=== PATIENT | female | born 1955 | race Caucasian/White ===

== ENCOUNTER 2024-03-13 06:22 | Observation (INO) ==
--- NOTE | 2024-02-19 11:50 | PAT Medication Instructions ---
Medication Instructions Date of Service February 19, 2024 Home Medications acetaminophen 650 mg tablet,extended release 650 mg PO QAM apixaban 5 mg tablet (Eliquis) 5 mg PO BID calcium carbonate 600 mg-vitamin D3 5 mcg (200 unit) tablet (Calcium 600 + D(3)) 1 tab PO DAILY glipizide 10 mg tablet 10 mg PO QPM levothyroxine 50 mcg capsule 50 mcg PO QAM lisinopril 10 mg tablet 10 mg PO QAM metoprolol succinate 25 mg tablet,extended release 24 hr 12.5 mg PO QPM oxybutynin chloride 10 mg tablet,extended release 24 hr 10 mg PO QAM ASK your prescriber and surgeon apixaban 5 mg tablet (Eliquis) 5 mg PO BID (From anesthesia perspective, Apixaban/Eliquis needs to be stopped 72 hours before surgery. Please check if okay with doctor that prescribes this to you) DO NOT take the morning of surgery calcium carbonate 600 mg-vitamin D3 5 mcg (200 unit) tablet (Calcium 600 + D(3)) 1 tab PO DAILY lisinopril 10 mg tablet 10 mg PO QAM oxybutynin chloride 10 mg tablet,extended release 24 hr 10 mg PO QAM Take morning of surgery With a small sip of water, OTHERWISE NOTHING TO EAT OR DRINK AFTER MIDNIGHT: acetaminophen 650 mg tablet,extended release 650 mg PO QAM levothyroxine 50 mcg capsule 50 mcg PO QAM Take evening before surgery glipizide 10 mg tablet 10 mg PO QPM metoprolol succinate 25 mg tablet,extended release 24 hr 12.5 mg PO QPM Other Notes If you have any questions please call us at [phone] or [phone] or [phone] or [phone]
--- NOTE | 2024-02-22 10:57 | Anesthesiology Consultation ---
Date of Service February 22, 2024 Assessment & Plan (1) Encounter for pre-operative examination: - Check BSG AM DOS - Infectious disease screening: Per assessment on 02/22/24: No known infectious disease contacts or current infectious disease symptoms. No noted recent Covid positive test result. - Outpatient joint assessment: Pt currently scheduled for inpatient pathway. If surgeon requests review for outpatient joint pathway, patient is not recommended candidate for outpatient joint program from anesthesia standpoint. - Apixaban/Eliquis instructions: patient made aware that for neuraxial anesthesia, Apixaban/Eliquis needs to be held 72 hours prior to surgery. Patient voiced understanding/will check if okay with prescriber. - Chlorhexidine allergy: Per patient, hx of rash with long-term exposure/use of chlorhexidine. Did not provide patient with preop chlorhexidine wipes d/t previous reaction. - EP visit (12/18/23): Hx atrial flutter s/p ablation on 06/19/22. 2 episodes of PAF during the ablation requiring cardioversion. No recurrences since previous visit. Continued on same regimen with 6 month f/u recommended. Chart Review Chart Review: Acceptable Risk for Surgery and Patient seen in Pre Admission Testing Teaching & Discussion Pre-Anesthesia Teaching/Discussion Notes: Instructed NPO after midnight before surgery,except medications with 15 cc of water. Medication instructions provided according to the PAT guidelines. History Surgery Operation Date: 03/13/24 08:50 Proposed Procedures p Right Total Knee Arthroplasty - Corky Dexter MD Height/Weight Height: 5 ft 2 in Weight: 118.2 kg Allergies Allergy/AdvReac Type Severity Reaction Status Date / Time chlorhexidine Allergy Unknown Rash-with Verified 02/18/24 12:38 [facility] exposure Penicillins Allergy Unknown Hives Verified 02/18/24 12:26 Medications Home Medications Medication Instructions Recorded Confirmed Last Taken acetaminophen 650 mg 650 mg PO QAM 02/18/24 02/18/24 Unknown tablet,extended release apixaban 5 mg tablet (Eliquis) 5 mg PO BID 02/18/24 02/18/24 Unknown calcium carbonate 600 mg-vitamin 1 tab PO DAILY 02/18/24 02/18/24 Unknown D3 5 mcg (200 unit) tablet (Calcium 600 + D(3)) glipizide 10 mg tablet 10 mg PO QPM 02/18/24 02/18/24 Unknown levothyroxine 50 mcg capsule 50 mcg PO QAM 02/18/24 02/18/24 Unknown lisinopril 10 mg tablet 10 mg PO QAM 02/18/24 02/18/24 Unknown metoprolol succinate 25 mg 12.5 mg PO QPM 02/18/24 02/18/24 Unknown tablet,extended release 24 hr oxybutynin chloride 10 mg 10 mg PO QAM 02/18/24 02/18/24 Unknown tablet,extended release 24 hr Past Medical History Medical History (Updated 02/22/24 @ 12:27 by Francesca Quintero) Bilateral primary osteoarthritis of knee Chronic periodontal disease Dentist monitoring, no recent flares Diabetes NIDDM History of COVID-19 11/2023: symptoms resolved Hx of atrial flutter Reason for Eliquis Follows /[facility] [place] [facility] Hx of hepatitis Age 11 (from [place]) Hx of renal calculi Hypertension Hypothyroidism Morbid obesity PAF (paroxysmal atrial fibrillation) 2 episodes during 06/2022 ablation requiring cardioverion Sleep apnea CPAP (compliant) Uterine cancer 2021- s/p hysterectomy (no chemo or radiation) Exercise / Class Metabolic Activity II 4-5 Yardwork/Stairs/Walk up hill (one FS: No CP, no SOB) Past Family History Family History Other Cancer Diabetes Heart disease Past Surgical History Surgical History History of bunionectomy Right History of foot surgery Right x5 Hx of colonoscopy Hx of cystoscopy Hx of hysterectomy 2021 Hx of lithotripsy Hx of nephrolithotomy with removal of calculi B/L Hx of parathyroidectomy Left - 1.5 removed Hx of prior ablation treatment Past Anesthesia History No Hx of Anesthesia Complications and No Family Hx of Anesthesia Complications History of PONV No Hx of PONV and No Hx of Motion Sickness Social History Smoking Status: Former smoker Do You Dip or Chew Tobacco: No Smoking End Date: Quit 20 years ago Hx Alcohol Use: Yes alcohol intake frequency: holidays/special occasions only Hx Substance Use: No substance use type: does not use Review of Systems Periodontal disease: dentist monitoring, no recent flares; patient states she will make surgeon aware. Patient denies chest pain, shortness of breath, dyspnea on exertion, fever, chills, cough, wheezing, palpitations. Physical Exam Vital Signs BP 120/80 P 62 TEMP 97.5 SP02 98%RA RESP 16 Physical Full cervical extension range of motion. Full TMJ range of motion. TMD > 3.5 finger breaths Mallampati Score 3 Dentition: intact Lungs: clear throughout to auscultation Cardiac: regular rate and rhythm, no murmurs noted Spine: normal Carotid arteries: negative bruit Extremities: no LE edema Thick neck Lab Results Anesthesia Preop Results Results Anesthesia Widget: WBC 6.48 K/ul (4.8-10.8) 02/22/24 Hgb 14.5 g/dl (12.0-16.0) 02/22/24 Hct 42.3 % (37.0-47.0) 02/22/24 Plt 356 K/uL (130-400) 02/22/24 Na 137 mmol/L (136-145) 02/22/24 K 4.7 mmol/L (3.5-5.1) 02/22/24 Cl 104 mmol/L (98-107) 02/22/24 CO2 26 mmol/L (21-32) 02/22/24 BUN 16 mg/dl (6-23) 02/22/24 Creat 0.84 mg/dl (0.6-1.2) 02/22/24 Glucose Level 122 mg/dl (70-99(Fasting)) H 02/22/24 PT 10.4 Seconds (9.0-12.0) 02/22/24 PTT 28 Seconds (21-31) 02/22/24 INR 0.9 (0.9-1.1) 02/22/24 HA1c 6.2 % (4.5-5.6) H 02/22/24 Blood Type A Negative 02/22/24 Antibody Screen NEGATIVE 02/22/24 Testing Electrocardiogram Date: 12/18/23 SB with sinus arrhythmia at 56bpm. "Otherwise normal ECG" Chest X-Ray Date: 02/22/24 FINDINGS: Cardiac silhouette is enlarged. No pneumothorax, pleural effusion or pulmonary edema. Mild linear lingular atelectasis versus scarring. Surgical clips of the left lower neck/upper chest. Bones appear grossly intact. IMPRESSION: No acute process. Echocardiogram Date: 05/04/22 LVEF 65-70%. No LV wall motion abnormalities. Impaired relaxation pattern of LV diastolic filling. Grade I. Borderline ascending aorta. Insufficient TR to assess for RVSP.
[~2024-03-13 06:22] MED LIST: ALLERGY Noted to ORDERED Medication SCH; BUPIVACAINE 0.5 % 5 MG/1 ML PF 10ML VIAL ONE; ROPIVACAINE 0.5% 5 MG/ML 30 ML VIAL ONE; ceFAZolin 3000MG 3,000 MG/72.5 ML BAG IV SCH
--- NOTE | 2024-03-13 06:47 | History & Physical Bridge Note ---
Date of Service March 13, 2024 History & Physical Bridge Note I have examined the patient, reviewed the History & Physical and in the interval since the performance of the History & Physical I have noted the following changes of clinical significance: no changes noted
[2024-03-13] MEDS ORDERED: Nursing to Pharmacy Communication SCH ×2 (07:45)
[2024-03-13] MEDS: Scopolamine 1 MG TDSY TD SCH (07:46)
[2024-03-13] MEDS: CeleBREX 200 MG CAP PO SCH (07:47)
[2024-03-13] MEDS: METOCLOPRAMIDE HCL 10 MG TABLET PO SCH (07:47)
[2024-03-13] MEDS: ACETAMINOPHEN 500 MG TAB PO SCH ×2 (07:47→14:20)
[2024-03-13] MEDS: FAMOTIDINE 20 MG TAB PO SCH (07:47)
[2024-03-13] MEDS: LR 500ML BOLUS, THEN 15ML/HR IV SCH (07:48)
[2024-03-13] MEDS: LR 60ML/HR IV SCH (07:48)
[2024-03-13] MEDS ORDERED: MIDAZOLAM HCL 1 MG/ML 2ML VIAL ONE (07:53)
[2024-03-13] MEDS ORDERED: fentaNYL citrate PF 100 MCG/2 ML VIAL ONE (07:53)
[2024-03-13] MEDS ORDERED: PROPOFOL IV EMULSION 10 MG/ML 100 ML VIAL IV ONE (07:55)
[2024-03-13] MEDS ORDERED: fentaNYL citrate PF 100 MCG/2 ML VIAL IV PRN (07:55)
[2024-03-13] MEDS ORDERED: ATROPINE SULFATE 0.1 MG/ML 10ML SYR IV PRN (07:55)
[2024-03-13] MEDS ORDERED: ONDANSETRON INJ 2 MG/ML 2 ML VIAL IV PRN ×2 (07:55→13:22)
[2024-03-13] MEDS ORDERED: ePHEDrine sulfate 50 MG/ML AMP IV PRN (07:55)
[2024-03-13] MEDS: dexAMETHasone**PF** 10 MG/ML VIAL IV SCH (08:07)
[2024-03-13] MEDS: ceFAZolin 2000MG 2,000 MG/15 ML SYR IV STA (09:13)
[2024-03-13] MEDS: ceFAZolin 2,000 MG/15 ML IV PUSH IV ONE (09:48)
[2024-03-13] MEDS: ORTHO JOINT ANESTHETIC ONE (09:49)
[2024-03-13] MEDS: TRANEXAMIC ACID 1,000 MG **IV Intra-op IV SCH (10:06)
[2024-03-13] MEDS: ROPIV 0.5% 246mg, Ketorolac 30mg, EPINEPHrine 0.5mg in NSS INFIL SCH (10:18)
--- NOTE | 2024-03-13 11:06 | Operative Report ---
PG Post Operative Report Pre & Post Diagnosis Operation Date: 03/13/24 08:50 Pre-Op Diagnosis: Right Knee Degenerative Joint Disease Post-Op Diagnosis: Right Knee Degenerative Joint Disease I identified the patient and participated in the time-out.: Yes Procedure Operation Date: 03/13/24 08:50 Actual Procedures p Right Total Knee Arthroplasty(Right) - Corky Dexter MD Surgeon Corky Dexter MD Road Maker Devon Chaney PA-C Estimated Blood Loss 50 Findings Consistent with Post-Op Diagnosis Operative findings were advanced right knee medial compartment arthritis. She had extensive grade 4 [id number] disease of the medial femoral condyle medial tibial plateau. Slight varus deformity to her knee. Moderate soft tissue envelope. Moderate-sized joint effusion. Specimens Right knee sent for pathology. Anesthesia Type Spinal MAC Complications none Disposition Accompanied Patient To Recovery: No Indications Patient is a 68-year-old female is had a several year history of increasing bilateral knee pain discomfort describes gotten worse over time. She been through extensive conservative treatments became less successful over time. She had pain in both knees. The right knee is bothering more than the left. She elected proceed with a right total knee arthroplasty. Description of Procedure Operative implants consist of: 1 Biomet Vanguard size 65 right posterior stabilized femoral component. 2. Biomet size 63 tibial tray. 3. 10 mm posterior stabilized polyethylene insert. 4. 31 x 8 all poly patella. The patient was taken the op room, identified, placed on the operating table in the supine position. All contact areas were appropriately padded. A spinal anesthetic and abductor canal block had been provided in the holding area by the anesthesia team. A Mcgee catheter was placed in sterile fashion. A right thigh tent was then placed. The right lower extremities then prepped and draped in usual sterile fashion. The right leg was elevated exsanguinated with use of an Esmarch and tourniquet placed at 300 mmHg. An anterior approach to the right knee was then performed through a longitudinal incision centered over the patella. Sharp dissection was carried through subcutaneous tissue down the extensor mechanism. A medial parapatellar arthrotomy incision was made. Some subperiosteal dissection was carried out medially. The fat pad was resected from Neath patella tendon. Lateral patellofemoral ligament was released. The patella subluxated laterally and the knee was flexed. The osteophytes taken off the distal femur. The ACL and PCL were then released from distal femur and the tibia subluxated anteriorly. The external treatment line jig was then placed in the anterior face of the tibia and adjusted 14 mm medially. Proximal tibial cut was made remove about a millimeter or 2 of bone from most deficient aspect the medial tibial plateau. The tibia sized to a size 63. Attention drawn the femur. The distal femur stem with a sharp drill. Intramedullary canal was suction. A right 5 degree valgus cutting guide was placed. The distal femoral cutting block was pinned in place. The distal femoral cut was made take an additional 3 mm of bone off distal femur. The femur was then sized to a size 65. We did downsize this almost an entire size due to the narrow nature of her medial and lateral dimensions of the femur. The AP cutting block was pinned parallel to the epicondylar axis which was 4 degrees. The anterior cut, anterior chamfer, posterior cut, posterior chamfer cuts were made. The box cutting guide was placed in just slight lateral and the box cut was made. The knee was flexed. The remnants of the medial and lateral menisci were excised. The osteophytes taken off the posterior aspect the femur. A trial femoral component was placed. The tibial tray was pinned Melissa external rotation and the drill and stem punch were used to create defect in proximal tibia for the tibial tray. The knee was then trialed and the 10 mm insert fit most appropriately. Attention drawn the patella. The patella was cleaned of all soft tissues. Patella thickness measured 20 mm in thickness was cut down to 12. It was sized to a size 31 patella. The lug holes were drilled for 31 patella. The lateral osteophyte was removed. Patella button was placed. Knee was taken through range of motion patella tracked nicely with no thumbs test. Attention drawn to placing the permanent components. Nupathe all trial components were removed. Bone plug was placed into this femur limit blood loss. A double batch [place] G cement was mixed. A Biomet Vanguard size 65 right posterior stabilized femoral component, size 63 tibial tray, a 10 mm post stabilized polyethylene insert, and a 31 x 8 all poly patella then cemented in place. The knee was brought out into full extension till cement hardened. Final cement check was then performed. The pericapsular tissues were injected with total 100 cc of orthopedic joint mix. Patient did receive 1 g tranexamic acid. The tourniquet was then let down for final tourniquet time 51 minutes. Hemostasis assured use electrocautery. Extensor Metros then closed with combination 1 PDS suture #1 Vicryl suture in a [id number] fashion. Extensor Meclomen checked found to be intact through subcutaneous tissues then closed with 2 Dexon suture in a buried interrupted fashion skin was closed skin niharika. Leg was then cleaned and dried and sterile dressing with Xeroform, 4 fours, sterile cast padding, Escobar bandage were applied. Patient then transferred to the recovery room in stable condition. Patient tolerated procedure well and there were no complications. Devon Chaney, my physician itinerant teacher assistant, was present for the entire procedure. His assistance was essential and required for appropriate patient positioning, prepping and draping, surgical exposure, performing the technical details of the operation, placement the implants, closure of the wound, and placement of the sterile bandage. I attest to the content of the Intraoperative Record and any orders documented therein. Any exceptions are noted below.
--- NOTE | 2024-03-13 12:22 | XRay Report ---
RIGHT KNEE 2 VIEWS History: Right total knee arthroplasty. Degenerative arthritis. Postop. FINDINGS: The patient is status post a right total knee arthroplasty. The hardware is intact. No frac ture or dislocation. Skin niharika are in place. IMPRESSION: Right total knee arthroplasty. No evidence for hardware complication. ACT 112: Negative or not required by law. Electronically signed by: Kemal Workman M.D. 03/13/2024 12:21 PM
[2024-03-13] MEDS ORDERED: NALOXONE HCL 0.4 MG/1 ML VIAL/CARP IV PRN (13:22)
[2024-03-13] MEDS ORDERED: MAGNESIUM HYDROXIDE SUSP 30 ML UDC PO PRN (13:22)
[2024-03-13] MEDS ORDERED: METOCLOPRAMIDE HCL INJ 5 MG/ML 2 ML VIAL IV PRN (13:22)
[2024-03-13] MEDS ORDERED: bisacodyL 10 MG SUPP PR PRN (13:22)
[2024-03-13] MEDS ORDERED: ALUMINUM/MAGNESIUM SUSP 30 ML UDC PO PRN (13:22)
[2024-03-13] MEDS ORDERED: PHARMACY GLYCEMIC MGMT CONSULT PRN (13:22)
--- NOTE | 2024-03-13 14:00 | Anesthesiology Progress Note ---
Date of Service March 13, 2024 Anesthesia Post Procedure Vital Signs Vital Signs: Temp Pulse Pulse Resp BP Pulse Ox O2 Del Method 03/13/24 13:40 97.7 F 78 16 124/54 L 95 Room Air 03/13/24 13:10 97.9 F 88 16 127/68 96 Room Air 03/13/24 12:55 81 15 124/62 93 Room Air 03/13/24 12:40 79 19 114/63 93 Room Air 03/13/24 12:25 81 17 122/65 93 Room Air 03/13/24 12:10 84 18 120/66 94 Room Air 03/13/24 12:00 98.1 F 81 14 123/68 93 Oxymask 03/13/24 11:50 83 13 121/74 94 Oxymask 03/13/24 11:40 91 H 20 118/72 92 Oxymask 03/13/24 11:30 83 15 120/68 95 Oxymask 03/13/24 11:20 84 15 123/67 94 Oxymask 03/13/24 11:10 88 15 115/69 95 Oxymask 03/13/24 11:00 85 15 121/65 92 Room Air 03/13/24 10:53 97.7 F 89 19 115/64 92 Room Air 03/13/24 07:07 97.9 F 71 20 165/87 H 98 Room Air O2 Flow Rate 03/13/24 13:40 03/13/24 13:10 03/13/24 12:55 03/13/24 12:40 03/13/24 12:25 03/13/24 12:10 03/13/24 12:00 2 03/13/24 11:50 2 03/13/24 11:40 2 03/13/24 11:30 2 03/13/24 11:20 4 03/13/24 11:10 4 03/13/24 11:00 03/13/24 10:53 03/13/24 07:07 Pain Intensity Bilateral Knee: Pain Intensity: 2 Transfer of Care Handoff Completed per policy Notes Mental Status: alert / awake / arousable and participated in evaluation Patient Amnestic to Procedure: Yes Nausea / Vomiting: adequately controlled Pain: adequately controlled Airway Patency, RR, SpO2: stable & adequate BP & HR: stable & adequate Hydration State: stable & adequate Neuraxial Anesthesia: was administered and sensory block is resolving Anesthetic Complications: no major complications apparent and Pt Satisfied with anesthetic care
[2024-03-13] MEDS: SODIUM CHLORIDE 0.9% 1,000 ML IV SCH (14:03)
[2024-03-13] MEDS ORDERED: GLUCOSE 10 TAB/TUBE PO PRN (14:15)
[2024-03-13] MEDS ORDERED: DEXTROSE 50% 50 ML SYRINGE IV PRN (14:15)
[2024-03-13] MEDS ORDERED: GLUCOSE 40% GEL 15 GM TUBE PO PRN (14:15)
[2024-03-13] MEDS ORDERED: CARBOHYDRATES FOR HYPOGLYCEMIA PO PRN (14:15)
[2024-03-13] MEDS ORDERED: GLUCAGON FOR INJ 1 MG VIAL IM PRN (14:15)
[2024-03-13] MEDS: KETOROLAC TROMETHAMINE 15 MG/ML VIAL IV SCH (14:20)
[2024-03-13] MEDS: INSULIN ASPART PER UNIT CHARGE SQ ONE (14:20)
[2024-03-13] MEDS: LANTUS PER UNIT CHARGE SC ONE (14:21)
[2024-03-13] MEDS: Scopolamine CHECK PATCH PLACEMENT SCH (15:42)
[2024-03-13] MEDS: oxyCODONE HCL IR 5 MG TAB (IMMEDIATE RELEASE) PO PRN (15:44)
[2024-03-13] MEDS: TRANEXAMIC ACID / 0.7% NACL 1,000 MG/100 ML BAG IV SCH (16:53)
[2024-03-13] MEDS: ASCORBIC ACID 500 MG TAB PO SCH (16:53)
[2024-03-13] MEDS: INSULIN ASPART PER UNIT CHARGE SC SCH (17:44)
[2024-03-13] MEDS: ceFAZolin 2000MG 2,000 MG/15 ML SYR IV SCH (18:45)
[2024-03-13] MEDS: HYDROmorphone INJ 0.5 MG/0.5 ML SYR IV PRN (18:45)
[2024-03-13] MEDS ORDERED: glipiZIDE 5 MG TAB PO SCH (21:00)
[2024-03-13] MEDS: DOCUSATE SODIUM 100 MG CAP PO SCH (21:42)
[2024-03-13] MEDS: SENNA 8.6 MG TAB PO SCH ×2 (21:43)
[2024-03-13] MEDS: METOPROLOL SUCC 25MG EXT REL TAB PO SCH (21:43)
[2024-03-14] MEDS: LEVOTHYROXINE SODIUM 50 MCG TABLET PO SCH (06:00)
[2024-03-14 06:35] LABS: Hematocrit (blood only) 35.3 % (37.0-47.0); Hemoglobin 11.7 g/dl (12.0-16.0); Mean Corpuscular Hemoglobin 30.2 pg (25.0-34.0); Mean Corpuscular Hgb Conc 33.1 g/dL (32.0-36.0); Mean Platelet Volume 9.5 fL (9.4-12.4); Platelet Count 325 K/uL (130-400); RDW Coefficient of Variation 12.9 % (11.5-14.5); RDW Standard Deviation 42.1 fL (36.4-46.3); Red Blood Count 3.88 M/uL (4.20-5.40); White Blood Count 13.55 K/ul (4.8-10.8)
[2024-03-14 07:00] LABS: Calcium 8.8 mg/dl (8.6-10.3); Creatinine Clr Calc Pharmacy 59.5 ml/min; Est GFR (African American) 58.7 ml/min; Est GFR (Non-African American) 50.6 ml/min; Potassium 4.5 mmol/L (3.5-5.1)
[2024-03-14] MEDS: MULTIVITAMIN TAB PO SCH (07:51)
[2024-03-14] MEDS: OXYBUTYNIN CHLORIDE XL 5 MG TABCR PO SCH (07:51)
[2024-03-14] MEDS: dexAMETHasone 10 MG in SYRINGE 0 ML IV SCH (07:52)
[2024-03-14] MEDS: CALCIUM 600MG + VIT D 400 IU TAB PO SCH (07:52)
[2024-03-14] MEDS: lisinopril 10 MG TAB PO SCH (07:52)
[2024-03-14] MEDS: LANTUS PER UNIT CHARGE SC ONE (08:07)
[2024-03-14] MEDS: APIXABAN 2.5 MG TAB PO SCH (10:14)
--- NOTE | 2024-03-14 11:42 | Orthopedic Progress Note ---
Date of Service March 14, 2024 Assessment & Plan (1) Status post right knee replacement: Overall, she is doing quite well today with good pain control to the right knee. She will work with physical therapy later this morning to work on ambulation and range of motion exercises. She is on Eliquis for DVT prophylaxis. She can be discharged home later this morning pending formal physical therapy evaluation and recommendations. She will follow-up with Dr. Dexter in 2 weeks for postoperative management. Mere Carney was seen and evaluated this morning resting comfortably in no apparent distress. She notes that her pain is well-controlled to the right knee. She has yet to be seen by physical therapy this morning. She has been up and out of bed with no significant issues. She denies any other concerns today. Review of Systems All systems reviewed & are unremarkable except as noted in HPI & below. Physical Exam . On physical examination of the right knee, dressings are clean, dry, intact. Her leg is out in full extension. She has active plantarflexion dorsiflexion of the right ankle. +2 DP and PT pulses. Less than 2-second capillary refill. Normal sensation. Neurovascular intact. Results & Data Results & Data Laboratory Results . Diagnostic Findings . Postoperative x-rays of the right knee show prosthesis to be in anatomical alignment with no signs of fracture complication or loosening. PG Care Time/CCT Total # of Minutes Spent Total Time Spent with Patient: Total time spent is greater than 50% in coordination of care (as documented) at patient's floor/unit and/or counseling patient: Coding Level of Care Code 49027 Post Operative Follow-Up Diagnoses Status post right knee replacement Z96.651
--- NOTE | 2024-03-14 11:43 | Discharge Summary ---
Date of Service March 14, 2024 Principal Diagnosis Same as "Discharge Diagnosis" noted below under Discharge Instructions. Discharge Exam . On physical examination of the right knee, dressings are clean, dry, intact. Her leg is out in full extension. She has active plantarflexion dorsiflexion of the right ankle. +2 DP and PT pulses. Less than 2-second capillary refill. Normal sensation. Neurovascular intact. Discharge Data Procedures Performed Operation Date: 03/13/24 08:50 Actual Procedures p Right Total Knee Arthroplasty(Right) - Corky Dexter MD Ordered Studies 03/13/24 05:00 US - OR guided needle placemen Routine Hospital Course (1) Status post right knee replacement: On March 13, 2024 Nasra arrived at [facility] and underwent a right total knee arthroplasty performed by Dr. Dexter with no complications. She had a spinal anesthetic. Postoperatively, she was transferred to the PACU for immediate postoperative management and then transferred to the general orthopedic floor in stable condition. Her hospital course was uneventful. On postoperative day #1, her vital signs were stable and her pain was well- controlled. She was started on Eliquis for DVT prophylaxis. She participated well with physical therapy working on ambulation and range of motion exercises. She was then discharged home in stable condition. She will follow-up with Dr. Dexter in 2 weeks for postoperative management. PG Care Time/CCT Total # of Minutes Spent Total Time Spent with Patient: Total time spent is greater than 50% in coordination of care (as documented) at patient's floor/unit and/or counseling patient: Discharge Plan Discharge Items Patient Disposition: Home - Home Health Services Reason For Visit: Right Knee Degenerative Joint Disease Discharge Diagnosis: Right Knee Replacement Activity: Per Instructions section Non-emergency contact: Surgeon Call non-emergency contact if: you have any medication questions Follow-up/Referrals: Russ Saucedo PA-C [Primary Care Provider] - Diet: Carb Consistent or DM2 Addtl Attending Provider Instructions: ACTIVITY RECOMMENDATIONS: Physical Therapy: * You will go to physical therapy three times each week for four to six weeks after your surgery in order to regain your knee range of motion and to retrain your knee to work properly. * It is just as important to make sure you are getting your knee perfectly straight as it is to regain your knee bend. * Taking a pain pill an hour before therapy can help you have a more productive and comfortable therapy session. Home Exercise: * You were shown a series of exercises (heel props, heel slides, etc.) in the hospital. Do these exercises three to four times each day including the exercises you were shown in physical therapy. Walking: * Get up and walk several times each day. For the first four weeks, try not to stand or walk for more than one hour at a time. If you do stand or walk for more than one hour, you will not hurt anything, but your knee and leg will likely swell. * As you feel comfortable, you may change from the walker or crutches to a cane and then to independent walking. MEDICATIONS: New Medicine: * You will likely be taking one or more of these medications: 1. Oxycodone - A quick and shorter-acting pain medication. Take one to two tablets every six hours to lessen your pain. 2. Eliquis - Thins your blood to lessen the chance of forming a blood clot. * The most common side effects of pain medicine and iron are nausea and constipation. If nausea or constipation is too much of a problem or if you have any questions about your new medicines or doses, call [facility] at . We will try to help you manage these issues. "VERY IMPORTANT TO READ AND REVIEW" Pain: * The immediate post-operative period after knee replacement surgery is often quite painful. * You are given a prescription for pain medicine. You should take it, as directed, when you need it, especially before physical therapy and before going to bed. Pain that interferes with sleep is very common and can last several months. * You will likely need pain medicine for the first four to six weeks. It will not stop all of the pain. The pain will lessen and as you feel better, you may change to milder pain medicine such as Tylenol. * The most common side effects of pain medicine are nausea and constipation, so don't take more than you need. SPECIAL CARE INSTRUCTIONS: TEDs/Elastic Stockings: * The white elastic stockings help limit swelling and prevent blood clots from forming in your legs. The more you wear them, the more they work. * Wear them for six weeks after knee replacement surgery and four weeks after partial knee replacement. Incision Site Care: * Remove dressing postoperative day 2 and then shower. Keep direct shower pressure off the incision site. * After showering, cover niharika with dry gauze and change daily or more frequently if the dressing is getting saturated with drainage. * Use the MARTY stockings to hold dressing in place. DO NOT apply tape on the skin. * May completely stop using bandage if wound is dry and no drainage * Niharika are removed between 2 and 3 weeks post-op. If your follow-up appointment is made before 2 weeks, please have your appointment re- scheduled. It is too early to remove the niharika. Prevention of Infection: * Take antibiotics one hour before any dental cleaning, dental work, urological procedure, gastrointestinal procedure or any invasive surgery in order to prevent your new joint from getting infected. * You may get the antibiotics from the doctor performing the procedure or you may call our office at [phone] before and we will call in a prescription to the pharmacy of your choice. Things to Watch For: * Drainage from the incision site that occurs more than one week after your surgery. * Severely increased knee/leg pain or swelling. * Increased redness at the incision site. * Fever above 102 degrees Fahrenheit. * Unusual chest pain or shortness of breath. * Unusual pain or burning with urination. Call [facility] at [phone] with any of the above problems or if you have any questions about your medicines or recovery. FOLLOW UP VISIT: Make an appointment to see your doctor for approximately two weeks after surgery for a progress check and staple removal by calling the office at [phone]. Pending Studies at Discharge: No Stand-Alone Forms: My [facility], Pain - Opioid Pain Management, Smoking Cessation Medications and DC Order Prescriptions: Continued (DME) Wheeled Walker Misc See Rx Instructions .MEDSUPPLY Qty: 1 0RF Rx Instructions: As directed oxycodone 5 mg tablet 5 - 10 mg PO Q6 PRN (Reason: pain) Qty: 40 0RF Rx Instructions: Take as needed for pain ondansetron 4 mg tablet,disintegrating 4 mg PO Q8 PRN (Reason: nausea) Qty: 20 1RF Rx Instructions: Take as needed for nausea sennosides [Senokot] 8.6 mg tablet 8.6 mg PO BID 14 Days Qty: 28 0RF Rx Instructions: Take two times a day to prevent/treat constipation acetaminophen [Tylenol Extra Strength] 500 mg tablet 1,000 mg PO TID 30 Days Qty: 180 0RF Rx Instructions: Take 3 times per day to lessen pain. cefadroxil 500 mg capsule 500 mg PO BID 7 Days Qty: 14 0RF Rx Instructions: Take 1 cap twice a day to prevent infection metoprolol succinate 25 mg tablet extended release 24 hr 12.5 mg PO QPM Eliquis 5 mg tablet 5 mg PO BID levothyroxine 50 mcg capsule 50 mcg PO QAM lisinopril 10 mg tablet 10 mg PO QAM glipizide 10 mg tablet 10 mg PO QPM oxybutynin chloride 10 mg tablet extended release 24hr 10 mg PO QAM calcium carbonate-vitamin D3 [Calcium 600 + D(3)] 600 mg-5 mcg (200 unit) Tablet 1 tab PO DAILY Discontinued acetaminophen 650 mg tablet extended release 650 mg PO QAM Admission Data Admit Date/Time: 03/13/24 10:58 Attending Provider: Corky Dexter Admit Provider: Corky Dexter Primary Care Provider: Russ Saucedo Other Providers: [facility],Home [facility] Other Interventions: Discharge Summary Assessment (RN) Last Done: 03/14/24 09:43
== END 2024-03-14 10:47 | disposition home health service (06) ==
LOC: ASU 06:22 → 3E 06:22

== ENCOUNTER 2024-12-26 05:06 | Observation (INO) ==
--- NOTE | 2024-11-04 11:17 | PAT Medication Instructions ---
Medication Instructions Date of Service November 04, 2024 Home Medications Medication Instructions Recorded Jone Szymanski #1 ea 03/04/24 apixaban 5 mg tablet (Eliquis) 5 mg PO BID calcium 600 mg (as carbonate)-vitamin D3 5 mcg (200 unit) tablet (Calcium 600 + D(3)) 2 tab PO DAILY glipizide 10 mg tablet 10 mg PO QPM levothyroxine 50 mcg capsule 50 mcg PO QAM lisinopril 10 mg tablet 10 mg PO QAM metoprolol succinate 25 mg tablet,extended release 24 hr 12.5 mg PO QPM oxybutynin chloride 10 mg tablet,extended release 24 hr 10 mg PO QAM acetaminophen 500 mg tablet (Tylenol Extra Strength) 1,000 mg PO QAM pain clindamycin HCl 300 mg capsule 600 mg PO ONCE PRN dental procedures diphenhydramine 25 mg-acetaminophen 500 mg tablet (Tylenol PM Extra Strength) 1 tab PO HS MEDICATION INSTRUCTIONS: Continue as directed clindamycin HCl 300 mg capsule 600 mg PO ONCE PRN dental procedures ASK your prescriber and surgeon apixaban 5 mg tablet (Eliquis) 5 mg PO BID (for spinal anesthesia: will need to hold Eliquis/apixaban at least 72 hours prior to surgery) DO NOT take the morning of surgery lisinopril 10 mg tablet 10 mg PO QAM calcium 600 mg (as carbonate)-vitamin D3 5 mcg (200 unit) tablet (Calcium 600 + D(3)) 2 tab PO DAILY oxybutynin chloride 10 mg tablet,extended release 24 hr 10 mg PO QAM Take morning of surgery With a small sip of water, OTHERWISE NOTHING TO EAT OR DRINK AFTER MIDNIGHT: levothyroxine 50 mcg capsule 50 mcg PO QAM acetaminophen 500 mg tablet (Tylenol Extra Strength) 1,000 mg PO QAM pain Take evening before surgery glipizide 10 mg tablet 10 mg PO QPM metoprolol succinate 25 mg tablet,extended release 24 hr 12.5 mg PO QPM Other Notes If you have any questions please call us at [phone] or [phone] or [phone] or [phone]
--- NOTE | 2024-12-08 09:53 | Anesthesiology Consultation ---
Date of Service December 08, 2024 Assessment & Plan (1) Encounter for pre-operative examination: - check BSG am DOS. - chlorhexidine wipes were not provided at PAT visit given allergy. - cardiology office visit 06/18/24: "...atrial flutter s/p ablation...doing well...paroxysmal atrial fibrillation and atrial flutter...since [ablation] had one or two episodes likely triggered by heat and dehydration...continue with her current medications and follow up in one year..." - Outpatient joint assessment: Patient is currently scheduled for inpatient pathway. If re-evaluated and patient/surgeon requests outpatient pathway, patient is not candidate for outpatient joint program from anesthesia standpoint. Chart Review Chart Review: Acceptable Risk for Surgery and Patient seen in Pre Admission Testing Teaching & Discussion Pre-Anesthesia Teaching/Discussion Notes: Instructed NPO after midnight before surgery, except medications with 15 cc of water. Medication instructions provided according to the PAT guidelines. History Surgery Operation Date: 12/26/24 07:00 Proposed Procedures p Left Total Knee Arthroplasty - Corky Dexter MD Height/Weight Height: 5 ft 2.5 in Weight: 117 kg Allergies Allergy/AdvReac Type Severity Reaction Status Date / Time Penicillins Allergy Intermediate Hives Verified 10/27/24 08:46 cefadroxil Allergy Mild itchy, red Verified 10/27/24 08:47 rash chlorhexidine Allergy Mild Rash-with Verified 10/27/24 08:46 prison exposure Medications Home Medications Medication Instructions Recorded Confirmed Last Taken apixaban 5 mg tablet (Eliquis) 5 mg PO BID 02/18/24 10/27/24 03/09/24 18:30 calcium 600 mg (as 2 tab PO DAILY 02/18/24 10/27/24 03/06/24 carbonate)-vitamin D3 5 mcg (200 unit) tablet (Calcium 600 + D(3)) glipizide 10 mg tablet 10 mg PO QPM 02/18/24 10/27/24 03/12/24 19:00 levothyroxine 50 mcg capsule 50 mcg PO QAM 02/18/24 10/27/24 03/13/24 05:00 lisinopril 10 mg tablet 10 mg PO QAM 02/18/24 10/27/24 03/12/24 07:00 metoprolol succinate 25 mg 12.5 mg PO QPM 02/18/24 10/27/24 03/12/24 19:00 tablet,extended release 24 hr oxybutynin chloride 10 mg 10 mg PO QAM 02/18/24 10/27/24 03/12/24 07:00 tablet,extended release 24 hr Wheeled Walker #1 ea 03/04/24 Unknown acetaminophen 500 mg tablet 1,000 mg PO QAM pain 10/27/24 10/27/24 Unknown (Tylenol Extra Strength) diphenhydramine 25 1 tab PO HS 10/27/24 10/27/24 Unknown mg-acetaminophen 500 mg tablet (Tylenol PM Extra Strength) clindamycin HCl 300 mg capsule 600 mg (2 x 300 mg) PO ONCE PRN 11/25/24 Unknown dental procedures #2 caps Past Medical History Medical History (Updated 12/08/24 @ 10:04 by Anu Jacobs PA-C) Chronic periodontal disease Dentist monitoring, no recent flares Cyst of pancreas recently diagnosed 09/2024 at [facility]-was advised on monitoring by specialist and PCP for now-currently in process of getting second opinion in 3 months after follow-up with PCP Diabetes NIDDM History of COVID-19 (~11/2023) 11/2023: symptoms resolved Hx of atrial flutter Reason for Eliquis Follows w/[facility] [place] [facility] Hx of hepatitis Age 11 (from [place]) Hx of renal calculi Hypertension controlled, stable per pt Hypothyroidism Morbid obesity Osteoarthritis PAF (paroxysmal atrial fibrillation) 2 episodes during 06/2022 ablation requiring cardioversion Sleep apnea CPAP (compliant) Uterine cancer 2021- s/p hysterectomy (no chemo or radiation) Patient denies h/o stroke, seizures, heart attack, heart failure, blood clots/DVTs or blood transfusions. Exercise / Class Metabolic Activity II 4-5 Yardwork/Stairs/Walk up hill (denies chest discomfort or shortness of breath with one flight of stairs) Past Family History Family History Other Cancer Diabetes Heart disease No family history of adverse response to anesthesia Past Surgical History Surgical History (Updated 12/08/24 @ 10:04 by Anu Jacobs PA-C) History of bunionectomy Right History of foot surgery Right x5 History of total right knee replacement (TKR) (03/13/24) Dr. Dexter @ [facility] Hx of colonoscopy Hx of cystoscopy Hx of hysterectomy 2021 Hx of lithotripsy Hx of nephrolithotomy with removal of calculi B/L Hx of parathyroidectomy Left - 1.5 removed Hx of prior ablation treatment Past Anesthesia History No Hx of Anesthesia Complications and No Family Hx of Anesthesia Complications History of PONV No Hx of PONV and No Hx of Motion Sickness Social History Smoking Status: Former smoker Do You Dip or Chew Tobacco: No Smoking End Date: 2008 Hx Alcohol Use: Yes alcohol intake frequency: holidays/special occasions only Hx Substance Use: No substance use type: does not use Review of Systems Patient denies chest pain, shortness of breath, dyspnea on exertion, reflux, fever, chills, cough, wheezing, or palpitations. Physical Exam Vital Signs Vitals BP 120/80 P 59 TEMP 97.9 SP02 97% on RA RESP 19 Physical Patient resting comfortably in chair in no acute distress, alert and oriented, responding appropriately throughout visit Full cervical extension range of motion without pain TMD 3.5 finger breadths Mallampati Score 3 Dentition: intact, denies chipped or loose teeth, caps/crowns, implants or bridges Lungs: normal respiratory effort. Good air movement, clear throughout to auscultation, no adventitious breath sounds Cardiac: regular rate and rhythm, no murmurs noted Carotid arteries: negative bruit bilat Lab Results Anesthesia Preop Results Results Anesthesia Widget: WBC 6.44 K/ul (4.8-10.8) 12/08/24 Hgb 13.6 g/dl (12.0-16.0) 12/08/24 Hct 40.3 % (37.0-47.0) 12/08/24 Plt 342 K/uL (130-400) 12/08/24 Na 139 mmol/L (136-145) 12/08/24 K 4.7 mmol/L (3.5-5.1) 12/08/24 Cl 107 mmol/L (98-107) 12/08/24 CO2 26 mmol/L (21-32) 12/08/24 BUN 17 mg/dl (6-23) 12/08/24 Creat 0.83 mg/dl (0.6-1.2) 12/08/24 Glucose Level 90 mg/dl (70-99(Fasting)) 12/08/24 PT 10.3 Seconds (9.0-12.0) 12/08/24 PTT 26 Seconds (21-31) 12/08/24 INR 0.9 (0.9-1.1) 12/08/24 Blood Type A Negative 12/08/24 Antibody Screen NEGATIVE 12/08/24 Testing Electrocardiogram Date: 06/18/24 Sinus bradycardia, rate 54 bpm Low voltage QRS Nonspecific T wave abnormality anterior leads Chest X-Ray Date: 02/22/24 No acute process.
[2024-12-26] MEDS: VANCOMYCIN HCL 1,250 MG in SODIUM CHLORIDE 0.9% 250 ML IV SCH (05:45)
[2024-12-26] MEDS: LR 500ML BOLUS, THEN 15ML/HR IV SCH (05:45)
[2024-12-26] MEDS: METOCLOPRAMIDE HCL 10 MG TABLET PO SCH (05:48)
[2024-12-26] MEDS: ACETAMINOPHEN 500 MG TAB PO SCH ×3 (05:48→21:03)
[2024-12-26] MEDS: LR 60ML/HR IV SCH (05:48)
[2024-12-26] MEDS: CeleBREX 200 MG CAP PO SCH (05:48)
[2024-12-26] MEDS: FAMOTIDINE 20 MG TAB PO SCH (05:48)
[2024-12-26] MEDS ORDERED: PROPOFOL IV EMULSION 10 MG/ML 20 ML VIAL IV ONE ×3 (06:35→08:39)
[2024-12-26] MEDS ORDERED: MIDAZOLAM HCL 1 MG/ML 2ML VIAL ONE ×2 (06:35→06:36)
[2024-12-26] MEDS ORDERED: LIDOCAINE 2% 2 ML VIAL/AMP(20MG/ML) INFIL ONE (06:35)
[2024-12-26] MEDS ORDERED: HYDROmorphone INJ 1 MG/ML SYRINGE IV PRN (06:41)
[2024-12-26] MEDS ORDERED: ATROPINE SULFATE 0.1 MG/ML 10ML SYR IV PRN (06:41)
[2024-12-26] MEDS ORDERED: ePHEDrine sulfate 50 MG/ML AMP IV PRN (06:41)
[2024-12-26] MEDS ORDERED: fentaNYL citrate PF 100 MCG/2 ML VIAL IV PRN (06:41)
[2024-12-26] MEDS ORDERED: ONDANSETRON INJ 2 MG/ML 2 ML VIAL IV PRN ×2 (06:41→10:54)
[2024-12-26] MEDS ORDERED: ROPIVACAINE 0.5% 5 MG/ML 30 ML VIAL ONE (06:43)
[2024-12-26] MEDS ORDERED: BUPIVACAINE 0.5 % 5 MG/1 ML PF 10ML VIAL ONE (06:44)
--- NOTE | 2024-12-26 06:53 | History & Physical Bridge Note ---
Date of Service December 26, 2024 History & Physical Bridge Note I have examined the patient, reviewed the History & Physical and in the interval since the performance of the History & Physical I have noted the following changes of clinical significance: no changes noted
[2024-12-26] MEDS: ORTHO JOINT ANESTHETIC ONE (07:39)
[2024-12-26] MEDS: TRANEXAMIC ACID 1,000 MG **IV Pre-op IV SCH (07:56)
[2024-12-26] MEDS ORDERED: ONDANSETRON INJ 2 MG/ML 2 ML VIAL ONE (08:06)
[2024-12-26] MEDS: ROPIV 0.5% 246mg, Ketorolac 30mg, EPINEPHrine 0.5mg in NSS INFIL SCH (08:26)
--- NOTE | 2024-12-26 08:59 | Operative Report ---
PG Post Operative Report Pre & Post Diagnosis Operation Date: 12/26/24 07:00 Pre-Op Diagnosis: Left Knee Osteoarthritis Post-Op Diagnosis: Left Knee Osteoarthritis I identified the patient and participated in the time-out.: Yes Procedure Operation Date: 12/26/24 07:00 Actual Procedures p Left Total Knee Arthroplasty(Left) - Corky Dexter MD Surgeon Corky Dexter MD Emblem Drawer In Devon Chaney PA-C Estimated Blood Loss 50 Findings Consistent with Post-Op Diagnosis Operative findings revealed a left knee DJD. She had grade 4 [id number] disease primarily involving the medial compartment. She had full-thickness cartilage loss of the femur as well as the tibia. Not much in the way of eburnation. She did have full-thickness cartilage loss and focal areas of the patellofemoral joint as well and is less severe laterally. She had a moderate- sized joint effusion. Specimens Left knee sent for pathology. Drains None Anesthesia Type Spinal MAC Complications none Disposition Accompanied Patient To Recovery: No Indications The patient is a 69-year-old female who had a 7-year history of increasing bilateral knee pain discomfort described to gotten worse over time. She had a right knee replaced about 10 months ago and is done well from this. She continued be limited by left knee pain discomfort and stiffness. She failed conservative measures. She elected proceed with left total knee arthroplasty. Description of Procedure Operative implants consist of: 1. Biomet Vanguard size 62.5 left posterior stabilized femoral component. 2. Biomet size 67 tibial tray. 3. 10 mm posterior stabilized polyethylene insert. 4. 28 x 8 all poly patella. The patient was taken to the op room, identified, placed on the operating table in the supine position. All conductors were appropriately padded. IV antibiotics fibra anesthesia team. A spinal anesthetic and adductor canal block had been provided in the holding area. A Mcgee catheter was placed in sterile fashion. A left foot was then placed. Left lower extremity was then prepped and draped in usual sterile fashion. The left leg was elevated and exsanguinated with use of an Esmarch and a turn was placed at 300 mmHg. Anterior approach to the left knee was then performed through a longitudinal incision centered over the kneecap. Sharp dissection Through subcutaneous tissue down the extensor mechanism. A medial parapatellar arthrotomy incision was made. Some subperiosteal dissection was carried out medially. The fat pad was resected munis patella tendon. The lateral patellofemoral ligament was released. Patella subluxated laterally and the knee was flexed. The osteophytes taken off distal femur. ACL and PCL were then released from the distal femur and the tibia subluxated anteriorly. The external treatment LYMErix then placed on the anterior face the tibia and adjusted 14 mm medially. The proximal tibial cut was made remove about 2 mm of bone from the medial side. Tibia sized a size 67. Attention drawn the femur. The distal femur was entered with a sharp drill. Intramedullary canal was suction. A left 5 degree valgus cutting guide was placed. The distal femoral cutting block was pinned in place. Distal femoral cut was made to take an additional 3 mm of bone off distal femur. The femur was then sized to a size 62.5. The AP cutting block was pinned parallel to the epicondylar axis which was 5 degrees of external rotation. The anterior cut, anterior chamfer, posterior cut, posterior chamfer cuts were made. The box cutting guide was placed and adjusted slightly laterally. The box cut was made. The knee was flexed with the remnants of the medial and lateral menisci were excised. The osteophytes taken off the posterior aspect of femur. A trial femoral component was placed. The tibial tray was pinned in Melissa external rotation and the drill and stem punch were used to create defect in proximal tibia for the tibial tray. The knee was then trialed and the 10 mm insert fit most appropriately. We did initially try the 12 insert but it was just too tight. Attention drawn the patella. The patella was cleaned of all soft tissue. Patella thickness measured 20 mm in thickness was cut down to 13. It was sized to a size 28 patella. The locals were drilled for the 28 patella. The lateral osteophytes removed. Patella button was placed. Knee was taken through range of motion patella tracked nicely with no thumbs test. Attention then drawn toward placement permanent components. All trial components were removed. Bone plug was placed into this femur limit blood loss. A double batch Palacos G cement was mixed. A Biomet Vanguard size 62.5 left posterior Byce femoral component, size 67 tibial tray, a 10 mm post stabilized polyethylene insert, and a 28 x 8 all poly patella then cemented in place. The knee was brought out into full extension till cement hardened. A final cement check was then performed. The pericapsular tissues were injected with total 100 cc of Ortho mix. The patient did receive 1 g of tranexamic acid to the. The tourniquet was let down for final tourniquet time of 57 minutes. Hemostasis surges electrocautery. Extensor Meclomen then closed with combination 1 PDS suture Vicryl suture in [id number] fashion. Extensor Meclomen checked found be intact through subcutaneous tissue then closed with 2 Dexon suture in a buried interrupted fashion skin was closed skin niharika. Leg was then cleaned and dried and sterile dressed with Xeroform, 4 fours, sterile cast padding, Escobar bandage were applied. Patient then transferred to the recovery room in stable condition. Patient tolerated procedure well and there were no complications. Devon Chaney, my physician customer support assistant, was present for the entire procedure. His assistance was essential and required for appropriate patient positioning, prepping and draping, surgical exposure, performing the technical details of the operation, placement the implants, closure of the wound, and placement of the sterile bandage. I attest to the content of the Intraoperative Record and any orders documented therein. Any exceptions are noted below.
--- NOTE | 2024-12-26 09:29 | XRay Report ---
XR knee LT 1 or 2V routine CLINICAL HISTORY: Postoperative evaluation. COMPARISON: Left knee radiographs December 08, 2024. FINDINGS: Alignment of the total left knee arthroplasty is anatomic. There is no periprosthetic frac ture or unexpected radiopaque foreign body. There are skin niharika. IMPRESSION: Expected findings following total left knee arthroplasty. ACT 112: Negative or not required by law. Electronically signed by: Sergio Barragan M.D. 12/26/2024 9:28 AM
--- NOTE | 2024-12-26 09:46 | Anesthesiology Progress Note ---
Date of Service December 26, 2024 Anesthesia Post Procedure Vital Signs Vital Signs: Temp Pulse Pulse Resp BP Pulse Ox O2 Del Method 12/26/24 09:45 62 16 111/75 94 Room Air 12/26/24 09:30 36.4 C L 57 L 14 110/70 97 Room Air 12/26/24 09:20 68 16 107/64 96 Room Air 12/26/24 09:10 69 14 116/69 99 Oxymask 12/26/24 09:00 70 15 106/59 L 96 Oxymask 12/26/24 08:53 36.4 C L 80 16 106/59 L 97 Oxymask 12/26/24 05:40 37.1 C 63 20 152/88 H 98 Room Air O2 Flow Rate 12/26/24 09:45 12/26/24 09:30 12/26/24 09:20 12/26/24 09:10 3 12/26/24 09:00 3 12/26/24 08:53 6 12/26/24 05:40 Pain Intensity Left Knee: Pain Intensity: 2 Transfer of Care Handoff Completed per policy Notes Mental Status: alert / awake / arousable and participated in evaluation Patient Amnestic to Procedure: Yes Nausea / Vomiting: adequately controlled Pain: adequately controlled Airway Patency, RR, SpO2: stable & adequate BP & HR: stable & adequate Hydration State: stable & adequate Anesthetic Complications: no major complications apparent and Pt Satisfied with anesthetic care
[2024-12-26] MEDS ORDERED: PHARMACY GLYCEMIC MGMT CONSULT PRN (10:54)
[2024-12-26] MEDS ORDERED: METOCLOPRAMIDE HCL INJ 5 MG/ML 2 ML VIAL IV PRN (10:54)
[2024-12-26] MEDS ORDERED: MAGNESIUM HYDROXIDE SUSP 30 ML UDC PO PRN (10:54)
[2024-12-26] MEDS ORDERED: GLUCOSE 40% GEL 15 GM TUBE PO PRN (10:54)
[2024-12-26] MEDS ORDERED: VANCOMYCIN CONSULT ACTIVE PRN (10:54)
[2024-12-26] MEDS ORDERED: GLUCOSE 10 TAB/TUBE PO PRN (10:54)
[2024-12-26] MEDS ORDERED: diphenhydrAMINE Capsule 25 MG CAP PO PRN (10:54)
[2024-12-26] MEDS ORDERED: DEXTROSE 50% 50 ML SYRINGE IV PRN (10:54)
[2024-12-26] MEDS ORDERED: GLUCAGON FOR INJ 1 MG VIAL SQ PRN (10:54)
[2024-12-26] MEDS ORDERED: CARBOHYDRATES FOR HYPOGLYCEMIA PO PRN (10:54)
[2024-12-26] MEDS ORDERED: ALUMINUM/MAGNESIUM SUSP 30 ML UDC PO PRN (10:54)
[2024-12-26] MEDS ORDERED: NALOXONE HCL 0.4 MG/1 ML VIAL/CARP IV PRN (10:54)
[2024-12-26] MEDS ORDERED: HYDROmorphone INJ 0.5 MG/0.5 ML SYR IV PRN (10:54)
[2024-12-26] MEDS ORDERED: bisacodyL 10 MG SUPP PR PRN (10:54)
--- NOTE | 2024-12-26 11:23 | Pharmacy Report ---
Pharmacy Glycemic Short Note 2 - Date of Service December 26, 2024 - Glycemic Short BSG Results (Last 24 hours): 12/26/24 12/26/24 05:27 09:11 POC Glucose 127 H 114 H OUTPATIENT ANTIDIABETIC REGIMEN: * Glipizide 10 mg PO qPM HbA1c: 6.1% (12/08/24) ASSESSMENT: * GS is a 69 year old female POD #0 s/p left total knee arthroplasty * No intraoperative steroids, but ordered one-time dose of dexamethasone 10 mg IV tomorrow AM (12/27/24) * Preop blood sugars of 127 mg/dL and 114 mg/dL PLAN FOR INPATIENT GLYCEMIC CONTROL: * Hold outpatient oral diabetes medications * Basal insulin * hold, reassess with AM steroids * Bolus insulin * NovoLog per scale ACHS or Q6hrs while NPO * Goal Range: Low 110 mg/dL - High 140 mg/dL * Correction Factor: 30 mg/dL/unit * Nutritional / Prandial insulin per carb ratio of 1 unit per 10 grams CHO consumed
[2024-12-26] MEDS: MEPERIDINE HCL 25 MG/ML CARP/VIAL ONE (11:25)
[2024-12-26] MEDS: lisinopril 10 MG TAB PO SCH (12:19)
[2024-12-26] MEDS: MULTIVITAMIN TAB PO SCH (12:19)
[2024-12-26] MEDS: INSULIN ASPART PER UNIT CHARGE SC SCH (12:21)
[2024-12-26] MEDS: KETOROLAC TROMETHAMINE 15 MG/ML VIAL IV SCH (12:24)
[2024-12-26] MEDS: oxyCODONE HCL IR 5 MG TAB (IMMEDIATE RELEASE) PO PRN (12:24)
[2024-12-26] MEDS: SENNA 8.6 MG TAB PO SCH ×2 (12:24→20:28)
[2024-12-26] MEDS: DOCUSATE SODIUM 100 MG CAP PO SCH (12:24)
[2024-12-26] MEDS: PNEUMOCOCCAL VACCINE (PCV20) 20-VAL CONJ-DIP CRM/PF 0.5 ML SYR IM ONE (13:43)
[2024-12-26] MEDS: TRANEXAMIC ACID / 0.7% NACL 1,000 MG/100 ML BAG IV SCH (14:52)
[2024-12-26] MEDS: ASCORBIC ACID 500 MG TAB PO SCH (17:39)
[2024-12-26] MEDS: VANCOMYCIN HCL 1,750 MG in SODIUM CHLORIDE 0.9% 500 ML IV SCH (17:47)
[2024-12-26] MEDS ORDERED: glipiZIDE 5 MG TAB PO SCH (21:00)
[2024-12-26] MEDS: METOPROLOL SUCC 25MG EXT REL TAB PO SCH (21:03)
[2024-12-26 22:44] VITALS: TEMP 97.7
[2024-12-27] MEDS: diphenhydrAMINE Capsule 25 MG CAP PO SCH
[2024-12-27 04:23] VITALS: O2SAT 98
[2024-12-27] MEDS: LEVOTHYROXINE SODIUM 50 MCG TABLET PO SCH (05:49)
[2024-12-27 06:32] LABS: Hematocrit (blood only) 32.5 % (37.0-47.0); Mean Corpuscular Hemoglobin 30.3 pg (25.0-34.0); Mean Corpuscular Hgb Conc 33.8 g/dL (32.0-36.0); Mean Corpuscular Volume 89.5 fL (80.0-100.0); Mean Platelet Volume 9.1 fL (9.4-12.4); Platelet Count 266 K/uL (130-400); RDW Standard Deviation 42.4 fL (36.4-46.3); Red Blood Count 3.63 M/uL (4.20-5.40); White Blood Count 6.64 K/ul (4.8-10.8)
[2024-12-27 06:43] LABS: BUN Creatinine Ratio 21.6 (10-20); Calcium 8.8 mg/dl (8.6-10.3); Creatinine Clr Calc Pharmacy 75.8 ml/min; Potassium 4.7 mmol/L (3.5-5.1)
--- NOTE | 2024-12-27 07:33 | Orthopedic Progress Note ---
Date of Service December 27, 2024 Assessment & Plan (1) Bilateral primary osteoarthritis of knee: (2) Status post left knee replacement: Plan: 69-year-old female postop day 1 from left knee replacement doing pretty well. Pains been controlled. She is neurologically intact. Plan: 1. DVT prophylaxis including thigh-high high teds, SCDs, back on her Eliquis. 2. PT/OT. Weight-bear as tolerated. Left total knee protocol. 3. Pain control. Doing okay with current pain regimen. 4 disposition. Plan to discharge home with some home health later today. Admission and Anticipated Discharge Date Admission Date: December 26, 2024 Subjective 69-year-old female postop day 1 from a left knee replacement. She is doing okay this morning. Pains been controlled. No chest pain or shortness of breath. Not feeling dizzy or lightheaded. Physical Exam Physical Exam: Physical examination is a pleasant middle-age female. She is lying bed looks pretty comfortable. Examination of the left leg reveals the dressing be clean dry and intact. She can dorsiflex and plantarflex her foot appropriately. She can do a straight leg raise with some effort. Respiratory: normal respiratory effort, lungs clear to auscultation Cardiovascular: RRR, no murmur, no edema Gastrointestinal (Abdomen): normal bowel sounds, soft, nontender, no hepatosp lenomegaly Results & Data Vital Signs (Past 12 Hours) Vital Signs Temp Pulse Resp BP Pulse Ox O2 Del Method 12/27/24 04:22 36.5 C 52 L 16 113/70 98 Room Air 12/26/24 22:42 36.5 C 56 L 12 107/73 97 Room Air Laboratory Results Hemoglobin is 11.0. Hematocrit is 32.5. Electrolytes are stable.
[2024-12-27 07:34] VITALS: PULSE 75; RESP 18
[2024-12-27] MEDS: CALCIUM 600MG + VIT D 400 IU TAB PO SCH (08:17)
[2024-12-27] MEDS: OXYBUTYNIN CHLORIDE XL 5 MG TABCR PO SCH (08:17)
[2024-12-27] MEDS: APIXABAN 2.5 MG TAB PO SCH (08:18)
[2024-12-27] MEDS: dexAMETHasone 10 MG in SYRINGE 0 ML IV SCH (08:18)
[2024-12-27 10:33] VITALS: BP 102/65
--- NOTE | 2025-01-01 08:30 | Discharge Summary ---
Date of Service January 01, 2025 Principal Diagnosis Same as "Discharge Diagnosis" noted below under Discharge Instructions. Discharge Data Procedures Performed Operation Date: 12/26/24 07:00 Actual Procedures p Left Total Knee Arthroplasty(Left) - Corky Dexter MD Ordered Studies 12/26/24 05:00 US - OR guided needle placemen Routine Hospital Course (1) Status post left knee replacement: This is a 69 year old patient admitted on 12/26/24 and underwent total knee arthro plasty. She tolerated the procedure well and there were no complications. Transferred to the PACU post op and later to the orthopedic floor for further care. She was given vancomycin for antibiotic prophylaxis. She was also given MARTY stockings, SCDs, and eliquis for DVT prophylaxis. Hemoglobin, hematocrit, and vital signs were monitored during her hospital stay and remained stable. Did not require any blood transfusions. There were no complications during her hospital stay. By post op day #1 the patient was tolerating a diabetic diet, pain was reasonably controlled with oral pain medicine, and she was participating in physical therapy. On post op day #1 the patient was discharged home and set up with home health care. She was given printed discharge instructions including prescriptions for extra strength tylenol, zofran, oxycodone, and senokot. Continue physical therapy, weight bearing as tolerated. Continue MARTY stockings. Follow up approximately 2 weeks post op or sooner if there are problems or concerns. PG Care Time/CCT Total # of Minutes Spent Total Time Spent with Patient: Total time spent is greater than 50% in coordination of care (as documented) at patient's floor/unit and/or counseling patient: Discharge Plan Discharge Items Patient Disposition: Home - Home Health Services Reason For Visit: Left Knee Osteoarthritis Discharge Diagnosis: Left Knee Replacement Activity: Per Instructions section Weightbearing: Full weightbearing Non-emergency contact: Surgeon Call non-emergency contact if: you have any medication questions Follow-up/Referrals: Russ Saucedo PA-C [Primary Care Provider] - Diet: Carb Consistent or DM2 Addtl Attending Provider Instructions: ACTIVITY RECOMMENDATIONS: Diet: * You may resume previous diet. Physical Therapy: * You will go to physical therapy three times each week for four to six weeks after your surgery in order to regain your knee range of motion and to retrain your knee to work properly. * It is just as important to make sure you are getting your knee perfectly straight as it is to regain your knee bend. * Taking a pain pill an hour before therapy can help you have a more productive and comfortable therapy session. Home Exercise: * You were shown a series of exercises (heel props, heel slides, etc.) in the hospital. Do these exercises three to four times each day including the exercises you were shown in physical therapy. Walking: * Get up and walk several times each day. For the first four weeks, try not to stand or walk for more than one hour at a time. If you do stand or walk for more than one hour, you will not hurt anything, but your knee and leg will likely swell. * As you feel comfortable, you may change from the walker or crutches to a cane and then to independent walking. MEDICATIONS: New Medicine: * You will likely be taking one or more of these medications: 1. Oxycodone - A quick and shorter-acting pain medication. Take one to two tablets every six hours to lessen your pain. 2. Eliquis - Thins your blood to lessen the chance of forming a blood clot. * The most common side effects of pain medicine and iron are nausea and constipation. If nausea or constipation is too much of a problem or if you have any questions about your new medicines or doses, call [facility] at . We will try to help you manage these issues. "VERY IMPORTANT TO READ AND REVIEW" Pain: * The immediate post-operative period after knee replacement surgery is often quite painful. * You are given a prescription for pain medicine. You should take it, as directed, when you need it, especially before physical therapy and before going to bed. Pain that interferes with sleep is very common and can last several months. * You will likely need pain medicine for the first four to six weeks. It will not stop all of the pain. The pain will lessen and as you feel better, you may change to milder pain medicine such as Tylenol. * The most common side effects of pain medicine are nausea and constipation, so don't take more than you need. SPECIAL CARE INSTRUCTIONS: TEDs/Elastic Stockings: * The white elastic stockings help limit swelling and prevent blood clots from forming in your legs. The more you wear them, the more they work. * Wear them for six weeks after knee replacement surgery and four weeks after partial knee replacement. Incision Site Care: * Remove dressing postoperative day 2 and then shower. Keep direct shower pressure off the incision site. * After showering, cover niharika with dry gauze and change daily or more frequently if the dressing is getting saturated with drainage. * Use the MARTY stockings to hold dressing in place. DO NOT apply tape on the skin. * May completely stop using bandage if wound is dry and no drainage * Niharika are removed between 2 and 3 weeks post-op. If your follow-up appointment is made before 2 weeks, please have your appointment re- scheduled. It is too early to remove the niharika. Prevention of Infection: * Take antibiotics one hour before any dental cleaning, dental work, urological procedure, gastrointestinal procedure or any invasive surgery in order to prevent your new joint from getting infected. * You may get the antibiotics from the doctor performing the procedure or you may call our office at [phone] before and we will call in a prescription to the pharmacy of your choice. Things to Watch For: * Drainage from the incision site that occurs more than one week after your surgery. * Severely increased knee/leg pain or swelling. * Increased redness at the incision site. * Fever above 102 degrees Fahrenheit. * Unusual chest pain or shortness of breath. * Unusual pain or burning with urination. Call [facility] at [phone] with any of the above problems or if you have any questions about your medicines or recovery. FOLLOW UP VISIT: Make an appointment to see your doctor for approximately two weeks after surgery for a progress check and staple removal by calling the office at [phone]. Pending Studies at Discharge: No Stand-Alone Forms: My [facility], Smoking Cessation Medications and DC Order Prescriptions: Continued (DME) Wheeled Walker Misc See Rx Instructions .MEDSUPPLY Qty: 1 0RF Rx Instructions: As directed clindamycin HCl 300 mg capsule 600 mg PO ONCE PRN (Reason: dental procedures) Qty: 2 2RF Rx Instructions: take 2 caps 1 hour prior to dental appointment oxycodone 5 mg tablet 5 - 10 mg PO Q6 PRN (Reason: pain) Qty: 40 0RF Rx Instructions: Take as needed for pain ondansetron 4 mg tablet,disintegrating 4 mg PO Q8 PRN (Reason: nausea) Qty: 20 1RF Rx Instructions: Take as needed for nausea sennosides [Senokot] 8.6 mg tablet 8.6 mg PO BID 14 Days Qty: 28 0RF Rx Instructions: Take two times a day to prevent/treat constipation acetaminophen [Tylenol Extra Strength] 500 mg tablet 1,000 mg PO TID 30 Days Qty: 180 0RF Rx Instructions: Take 3 times per day to lessen pain. metoprolol succinate 25 mg tablet extended release 24 hr 12.5 mg PO QPM Eliquis 5 mg tablet 5 mg PO BID levothyroxine 50 mcg capsule 50 mcg PO QAM lisinopril 10 mg tablet 10 mg PO QAM glipizide 10 mg tablet 10 mg PO QPM oxybutynin chloride 10 mg tablet extended release 24hr 10 mg PO QAM calcium carbonate-vitamin D3 [Calcium 600 + D(3)] 600 mg-5 mcg (200 unit) Tablet 2 tab PO DAILY diphenhydramine-acetaminophen [Tylenol PM Extra Strength] 25-500 mg Tablet 1 tab PO HS acetaminophen [Tylenol Extra Strength] 500 mg tablet 1,000 mg PO QAM Rx Instructions: Take 3 times per day to lessen pain. Admission Data Admit Date/Time: 12/26/24 08:53 Attending Provider: Corky Dexter Admit Provider: Corky Dexter Primary Care Provider: Russ Saucedo Other Providers: [facility],Home Health Other Interventions: Discharge Summary Assessment (RN) Last Done: 12/27/24 10:32
== END 2024-12-27 12:13 | disposition home health service (06) ==
LOC: ASU 05:06 → PACUINP 05:06 → 3E 10:44
DX: M25.462 Effusion, left knee; Z88.0 Allergy status to penicillin; G47.33 Obstructive sleep apnea (adult) (pediatric); Z79.01 Long term (current) use of anticoagulants; E66.9 Obesity, unspecified; Z96.651 Presence of right artificial knee joint; E03.9 Hypothyroidism, unspecified; I48.0 Paroxysmal atrial fibrillation; Z88.3 Allergy status to other anti-infective agents; Z79.890 Hormone replacement therapy; Z79.84 Long term (current) use of oral hypoglycemic drugs; Z87.891 Personal history of nicotine dependence; Z79.899 Other long term (current) drug therapy; M25.762 Osteophyte, left knee; E11.9 Type 2 diabetes mellitus without complications; I10 Essential (primary) hypertension; Z88.1 Allergy status to other antibiotic agents; M17.12 Unilateral primary osteoarthritis, left knee